=== PATIENT | male | born 1970 | race African-American/Black ===

== ENCOUNTER → 2017-11-10 | Outpatient (CLI) | payer MEDICARE, MEDICAID | END | disposition home or self-care (01) | LOC: RAD 11:08 | PROVIDERS: ATTEND Family Medicine Adult Medicine | DX: I10 Essential (primary) hypertension (principal) | CPT/HCPCS: 71046 ==

== ENCOUNTER → 2018-01-20 | Outpatient (CLI) | payer MEDICARE, MEDICAID | END | disposition home or self-care (01) | LOC: RAD 11:09 | PROVIDERS: ATTEND Family Medicine Adult Medicine | DX: M81.0 Age-related osteoporosis without current pathological fracture (principal) | CPT/HCPCS: 77080 ==